=== PATIENT | male | born 1990 | race Caucasian/White ===

== ENCOUNTER → 2017-05-09 09:55 | Outpatient (CLI) | payer OTHER, SELFPAY ==
--- NOTE | 2017-05-09 09:58 | RAD_ITS ---
STUDY: X-RAY - RIGHT SHOULDER REASON FOR EXAM: Chronic pain for 5 months. TECHNIQUE: 3 view(s) of the shoulder. COMPARISON: None. FINDINGS: Normal glenohumeral articulation. Normal acromioclavicular joint. Normal acromion. Normal humeral head and visualized proximal humerus. The soft tissue structures are unremarkable. Normal visualized pulmonary apex. RAD/Shoulder min 2 Views IMPRESSION: Normal x-ray examination of the right shoulder. Electronically Signed: Judson Strauss MD at 10:25 EDT Tel , Service support ,
== END ==
PROVIDERS: Visit Provider Orthopaedic Surgery
DX: M25.511 Pain in right shoulder (principal)
CPT/HCPCS: 73030

== ENCOUNTER → 2017-07-24 06:29 | Outpatient (CLI) | payer OTHER, SELFPAY ==
--- NOTE | 2017-07-24 10:27 | NEURO ---
NCS and/or EMG Patient Report Ordering Doctor: Julienne Reyes DATE OF SERVICE: 07/24/17 This is a right upper extremity EMG and nerve conduction study performed on this 26-year-old male who 1 year ago injured his right trapezius muscle with ongoing weakness in his right hand. Otherwise. Right upper extremity sensory and motor nerve conduction study demonstrates very mild prolongation of the median motor distal latency with preservation of amplitudes and conduction velocity. The median sensory distal latency is also mildly prolonged to digit 2. The ulnar motor and sensory and radial sensory responses are normal. The median and ulnar F waves are normal. Right upper extremity EMG is performed. Muscles evaluated included the first dorsal interosseous, abductor pollicis brevis, brachioradialis, biceps, triceps and deltoid muscles. All muscles demonstrated normal insertional activity with absence of pathologic spontaneous activity. Motor unit potential recruitment pattern and amplitude was normal in all muscles tested. 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 Otherwise this is a normal study.
== END ==
LOC: PSN 06:30
PROVIDERS: Visit Provider Orthopaedic Surgery
DX: M62.519 Muscle wasting and atrophy, not elsewhere classified, unspecified shoulder (principal); G12.9 Spinal muscular atrophy, unspecified
CPT/HCPCS: 95886; 95909; 95910